=== PATIENT | female | born 1995 | race Caucasian/White ===

== ENCOUNTER 2016-12-08 11:49 | Emergency (ER) | payer OTHER ==
[~2016-12-08] VITALS: Ht 177.8 cm; Wt 97.1 kg
[~2016-12-08 11:49] MED LIST: BIRTH CONTROL PILLS
[2016-12-08] MEDS ORDERED: SODIUM CHLORIDE 0.9% 1,000ML IVBOLUS ONE (12:30)
[2016-12-08] MEDS ORDERED: SODIUM CHLORIDE FLUSH 10ML SYR IVF ONE (12:30)
[2016-12-08] MEDS ORDERED: DEXAMETHASONE 4 MG/ML, 1ML IVPush ONE (12:30)
[2016-12-08] MEDS ORDERED: DEXAMETHASONE 4 MG/ML, 5ML ONE (12:30)
[2016-12-08 13:06] LABS: HEMATOCRIT 45.8 % (34.6-47.8); HEMOGLOBIN 15.4 g/dL (11.7-16.4); WHITE BLOOD COUNT 8.6 x10^3/uL (3.4-10)
[2016-12-08 13:22] LABS: ASPARTATE AMINO TRANSFERASE 14 U/L (15-37); BLOOD UREA NITROGEN 9 mg/dL (7-18)
[2016-12-08 13:46] VITALS: BP 120/74
== END 2016-12-08 14:37 | disposition home or self-care (01) ==
LOC: ED 12:59
DX: J03.90 Acute tonsillitis, unspecified (principal)
CPT/HCPCS: 36415; 80053; 85025; 86308; 96361; 96374; 99284; J1100; J7030

== ENCOUNTER 2017-03-06 07:56 | Emergency (ER) | payer OTHER ==
[~2017-03-06] VITALS: Ht 180.3 cm; Wt 98.2 kg
[2017-03-06 07:58] VITALS: BP 148/93
[2017-03-06] MEDS ORDERED: DEXAMETHASONE 4 MG TABLET ONE (08:20)
[2017-03-06] MEDS ORDERED: DEXAMETHASONE 4 MG TABLET PO ONE (08:30)
[2017-03-06 08:31] LABS: HEMATOCRIT 44.7 % (34.6-47.8); WHITE BLOOD COUNT 11.2 x10^3/uL (3.4-10)
[2017-03-06 08:42] LABS: BLOOD UREA NITROGEN 10 mg/dL (7-18)
== END 2017-03-06 09:43 | disposition home or self-care (01) ==
LOC: ED 08:08
DX: I88.9 Nonspecific lymphadenitis, unspecified (principal); J02.9 Acute pharyngitis, unspecified
CPT/HCPCS: 36415; 80048; 82040; 85025; 86308; 87081; 87880; 99284

== ENCOUNTER 2018-01-28 18:32 | Emergency (ER) | payer OTHER ==
[~2018-01-28] VITALS: Ht 180.3 cm; Wt 109.2 kg
[2018-01-28 19:47] LABS: BASOPHILS # (AUTO) 0.04 x10^3/uL (0-0.1); BASOPHILS % (AUTO) 1 % (0-1); EOSINOPHILS # (AUTO) 0.06 x10^3/uL (0-0.4); EOSINOPHILS % (AUTO) 1 % (1-7); LYMPHOCYTES # (AUTO) 1.65 x10^3/uL (1-3.4); LYMPHOCYTES % (AUTO) 21 % (22-44); MD NO; MEAN CORPUSCULAR HEMOGLOBIN 33.1 pg (27.0-34.8); MEAN CORPUSCULAR HGB CONC 34.3 g/dL (32.4-35.8); MEAN CORPUSCULAR VOLUME 96.4 fL (80-100); MEAN PLATELET VOLUME 8.7 fL (7.4-10.4); MONOCYTES # (AUTO) 0.56 x10^3/uL (0.2-0.8); MONOCYTES % (AUTO) 7 % (2-9); NEUTROPHILS # (AUTO) 5.76 x10^3/uL (1.8-6.8); NEUTROPHILS % (AUTO) 71 % (42-75); PLATELET COUNT 240 x10^3/uL (130-400); RED BLOOD COUNT 4.29 x10^6/uL (3.82-5.3); RED CELL DISTRIBUTION WIDTH 13.2 % (9.6-15.2)
[2018-01-28 20:38] LABS: MICROSCOPIC INDICATED
[2018-01-28 20:44] LABS: CULTURE INDICATED? YES
[2018-01-28] MEDS ORDERED: RHOGAM FROM BLOOD BANK 1 NOTE EA IM/IV ONE (21:30)
[2018-01-28 21:51] VITALS: BP 105/73
== END 2018-01-28 22:02 ==
LOC: ED 20:10
DX: O03.9 Complete or unspecified spontaneous abortion without complication (principal)
CPT/HCPCS: 36415; 76801; 84702; 85025; 86850; 86900; 87086; 96372; 99285; J2790; 87147

== ENCOUNTER 2018-09-12 11:33 | Emergency (ER) | payer OTHER ==
[~2018-09-12] VITALS: Ht 180.3 cm; Wt 110.0 kg
[2018-09-12 12:28] LABS: MEAN CORPUSCULAR HEMOGLOBIN 31.3 pg (27.0-34.8); MEAN CORPUSCULAR HGB CONC 32.7 g/dL (32.4-35.8); MEAN CORPUSCULAR VOLUME 95.7 fL (80-100); MEAN PLATELET VOLUME 8.4 fL (7.4-10.4); PLATELET COUNT 220 x10^3/uL (130-400); RED BLOOD COUNT 4.56 x10^6/uL (3.82-5.3); RED CELL DISTRIBUTION WIDTH 12.9 % (9.6-15.2)
[2018-09-12] MEDS ORDERED: CEFTRIAXONE PMX 1GM/50ML 50 ML IVPB ONE (12:30)
[2018-09-12] MEDS ORDERED: DEXAMETHASONE 4 MG TABLET PO ONE (12:30)
[2018-09-12] MEDS ORDERED: AMPICILLIN/SULBACTAM 3 GM in SODIUM CHLORIDE 0.9% 100 ML IV ONE (12:30)
[2018-09-12] MEDS ORDERED: SODIUM CHLORIDE FLUSH 10ML SYR IVF ONE (12:30)
[2018-09-12] MEDS ORDERED: metroNIDAZOLE 500 MG TABLET PO ONE ×2 (12:30)
[2018-09-12] MEDS ORDERED: SODIUM CHLORIDE 0.9% 1,000ML IVBOLUS ONE (12:30)
[2018-09-12] MEDS ORDERED: CEFTRIAXONE PMX 1GM/50ML 50 ML IV ONE (12:30)
[2018-09-12] MEDS ORDERED: IBUPROFEN 200 MG TABLET PO ONE (12:30)
[2018-09-12 12:40] LABS: ALBUMIN 3.7 g/dL (3.4-5.0); ANION GAP 6 mmol/L (5-15); CALCIUM 8.7 mg/dL (8.5-10.1); CHLORIDE 107 mmol/L (98-107); CREATININE 1.11 mg/dL (0.55-1.02)
[2018-09-12 12:49] LABS: MD YES
--- NOTE | 2018-09-12 12:50 | NUR ---
ASSUMED CARE OF PT. THIS IS A 22 YO FEMALE WHO PRESENTS TO THE ER C/O SORE THROAT SINCE YESTERDAY WITH SLIGHT COUGH AND NAUSEA. PT DENIES VOMITING. PT HAS SLIGHT THICKNESS TO VOICE BUT IS MAINTAINING AIRWAY W/O DIFFICULTY. RESP EVEN AND UNLABORED. PT ABLE TO SPEAK IN FULL 7-10 WORD SENTENCES W/O DIFFICULTY. SKIN PWD. PT AO X 4. CALL LIGHT WITHIN REACH. WILL CONT TO MONITOR PT.
[2018-09-12 12:51] LABS: BAND#(MANUAL) 2.38 x10^3/uL; BANDS%(MANUAL) 11 % (0-7); LYMPHS% (MANUAL) 3 % (22-44); SEG#(MANUAL) 16.63 x10^3/uL (1.8-6.8); SEGS% (MANUAL) 77 % (42-75)
[2018-09-12 12:52] LABS: BASOS#(MANUAL) 0.22 x10^3/uL (0-0.1); BASOS% (MANUAL) 1 % (0-1); LYMPH#(MANUAL) 0.65 x10^3/uL (1-3.4); MONOS#(MANUAL) 1.73 x10^3/uL (0.3-2.7); MONOS% (MANUAL) 8 % (2-9)
[2018-09-12 12:53] LABS: <PLATELET ESTIMATE> ADEQUATE; <PLT MORPHOLOGY> NORMAL PLT MORPH; <RBC MORPHOLOGY> NORMAL
[2018-09-12] MEDS ORDERED: metroNIDAZOLE 500 MG TABLET ONE (12:57)
[2018-09-12] MEDS ORDERED: DEXAMETHASONE 4 MG/ML, 5ML ONE (12:57)
[2018-09-12] MEDS ORDERED: IBUPROFEN 200 MG TABLET ONE (12:57)
[2018-09-12] MEDS ORDERED: CEFTRIAXONE PMX 1GM/50ML 50 ML ONE (12:57)
[2018-09-12 14:39] VITALS: BP 105/66
== END 2018-09-12 14:41 | disposition home or self-care (01) ==
LOC: ED 14:19
DX: J02.0 Streptococcal pharyngitis (principal)
CPT/HCPCS: 36415; 80048; 82040; 85025; 96365; 99284; J0696; J7030